=== PATIENT | female | born 1975 | race Hispanic/Latino ===

== ENCOUNTER 2021-01-11 15:07 | Outpatient (CLI) | payer OTHER, SELFPAY ==
--- NOTE | ~2021-01-11 | XR_ITS ---
EXAMINATION: XR chest 2V 01/11/2021 15:34 INDICATION: Shortness of breath and cough PROCEDURE: PA and lateral views of the chest COMPARISON: No prior studies for comparison. FINDINGS: The lungs are clear. The cardiomediastinal silhouette is within normal limits. There are no pleural effusions. There is no pneumothorax suspected. IMPRESSION: 1: NO ACUTE CARDIOPULMONARY DISEASE. Reviewed, dictated and finalized at location A. SLATER
== END 2021-01-11 15:08 | disposition home or self-care (01) ==
PROVIDERS: PCP Physician Assistant; Visit Provider Physician Assistant
DX: U07.1 COVID-19 (principal)
CPT/HCPCS: 71046

== ENCOUNTER 2021-01-24 13:03 | Outpatient (CLI) | payer OTHER, SELFPAY ==
--- NOTE | ~2021-01-24 | MM_ITS ---
EXAMINATION: MM screening deshawn BI w kathi HISTORY: Screening mammogram TECHNIQUE: Craniocaudal and mediolateral oblique 3-D tomosynthesis images were obtained and synthetic 2-D images were generated. CAD analysis was submitted and interpreted. COMPARISON: None, baseline BREAST PARENCHYMAL COMPOSITION: The breasts are extremely dense, which lowers the sensitivity of mamm ography. FINDINGS: There is no evidence of suspicious mass, calcification, or architectural distortion to sugg est malignancy in either breast. IMPRESSION: 1. No mammographic evidence of malignancy. 2. Recommend routine screening mammography in one year. BI-RADS Category 1: Negative Reviewed, dictated and finalized at location A.
== END 2021-01-24 13:04 | disposition home or self-care (01) ==
LOC: ANHIMG 13:08
PROVIDERS: PCP Physician Assistant; Visit Provider Physician Assistant
DX: Z12.31 Encounter for screening mammogram for malignant neoplasm of breast (principal)
CPT/HCPCS: 77063; 77067

== ENCOUNTER 2021-05-05 23:19 | Emergency (ER) | payer OTHER, SELFPAY ==
[2021-05-05 23:23] VITALS: BP 153/86; PULSE 103; RESP 20; TEMP 37.1; O2SAT 99
--- NOTE | 2021-05-06 00:14 | PC.NURSE ---
pt reports unable to sleep x 36 hours. also reports recent surgery and ran out of norco 3 days ago. appears a/o x 4, no s/s of distress. with son at bedside.
[2021-05-06] MEDS: LORazepam (*CRX) 1 MG TABLET PO (00:19)
[2021-05-06 00:25] VITALS: BP 145/75; PULSE 75; RESP 18; O2SAT 98
[2021-05-06 00:26] VITALS: PULSE 95
--- NOTE | 2021-05-06 01:07 | PC.NURSE ---
pt resting on stretcher c regular, even, nonlabored resps. no s/s of distress. family member at bedside.
--- NOTE | 2021-05-06 01:18 | PC.NURSE ---
resting on stretcher c eyes closed. no s/s of distress.
--- NOTE | 2021-05-06 01:29 | ED.GENADULT ---
HPI - General Adult General Chief complaint: Unspecified Stated complaint: insomnia Time Seen by Provider: 05/05/21 23:36 History of Present Illness HPI narrative: Patient is a 46-year-old female who presents to the ER for insomnia. Patient reports that over the last day and a half she has not been able to sleep due to just feeling anxious. No sign anything in particular that she is anxious about. She did have a surgery 1 week ago to remove fluid from her brain she is unsure what her diagnosis was or what the actual procedure was that was performed. She does know that she did not have a shunt placed. She has no new numbness or tingling or focal neurologic deficit since his surgery. She reports that she has been sleeping well since the surgery with the exception last 36 hours. No trauma to the head. She has tried no medications outside of melatonin to help her sleep. Patient reports her surgery was for fluid on the brain. It was not related to bleeding. Denies history of pseudotumor cerebri. Related Data Allergies Allergy/AdvReac Type Severity Reaction Status Date / Time No Known Allergies Allergy Verified 05/06/21 00:15 Review of Systems Review of Systems: All systems reviewed & are unremarkable except as noted in HPI and below Constitutional: Constitutional: Denies chills and Denies fever(s) Comments: Insomnia Eyes: Eyes: Denies loss of vision and Denies other visual disturbances Gastrointestinal: Gastrointestinal: Denies abdominal pain, Denies nausea and Denies vomiting Neurologic: Denies headache(s), Denies focal weakness and Denies numbness Psychiatric: Psychiatric: Reports anxiety PMFSH Past Medical History Medical History (Updated 05/06/21 @ 01:38 by Kasi Alcala MD) Healthy female adult Surgical History Surgical History (Updated 05/06/21 @ 01:35 by Kasi Alcala MD) H/O brain surgery Course Course Emergency Course: Unremarkable exam. Patient resting comfortably and laying in bed with her eyes closed in no distress. She had received Ativan for anxiety. States she is still unsure if she is going be able to sleep. Discussed that insomnia is not a medical emergency she can try additional sleep aids such as Benadryl. Is recommended she follow-up with her primary care doctor. If she were to develop any headache or neurologic issues she should immediately return and see her surgeons. Vital Signs Vital signs: Vital Signs Temperature 98.8 F 05/05/21 23:23 Pulse Rate 103 H 05/05/21 23:23 Respiratory Rate 20 05/05/21 23:23 Blood Pressure 153/86 H 05/05/21 23:23 Pulse Oximetry 99 05/05/21 23:23 Temperature 98.8 F 05/05/21 23:23 Pulse Rate 95 05/06/21 00:26 Respiratory Rate 18 05/06/21 00:25 Blood Pressure 145/75 H 05/06/21 00:25 Pulse Oximetry 98 05/06/21 00:25 Medical Decision Making Vital Signs Vital Signs: Vital Signs Temperature 98.8 F 05/05/21 23:23 Pulse Rate 103 H 05/05/21 23:23 Respiratory Rate 20 05/05/21 23:23 Blood Pressure 153/86 H 05/05/21 23:23 Pulse Oximetry 99 05/05/21 23:23 Temperature 98.8 F 05/05/21 23:23 Pulse Rate 95 05/06/21 00:26 Respiratory Rate 18 05/06/21 00:25 Blood Pressure 145/75 H 05/06/21 00:25 Pulse Oximetry 98 05/06/21 00:25 Discharge Plan Discharge Clinical Impression: Insomnia Patient Disposition: Home, Self-Care Condition: Stable Instructions: Insomnia (ED) Additional Instructions: You may continue taking melatonin at home. You may also take Benadryl to help you sleep. Follow-up with your primary care doctor for further treatment evaluation. Should you develop any headache, nausea, vomiting, numbness or tingling, or any change in vision you should immediately return to the hospital where you had your brain surgery performed. Prescriptions: New diphenhydramine HCl [Benadryl] 25 mg capsule 25 mg PO HS Qty: 10 RF: 0 Follow-up/Referrals: Pravin,Ramírez
--- NOTE | 2021-05-06 01:51 | PC.NURSE ---
d/c prior to benadryl given.
== END 2021-05-06 01:53 | disposition home or self-care (01) ==
PROVIDERS: Emergency Provider Emergency Medicine; PCP Internal Medicine Infectious Disease
DX: G47.00 Insomnia, unspecified (principal)
CPT/HCPCS: 99283; A9270

== ENCOUNTER 2022-05-07 11:07 | Emergency (ER) | payer OTHER, MEDICAID, SELFPAY ==
--- NOTE | ~2022-05-07 | XR_ITS ---
EXAMINATION: XR chest 2V DATE: 05/07/2022 12:35 INDICATION: Syncope TECHNIQUE: PA and lateral views of the chest were obtained. COMPARISON: Chest radiograph dated 01/11/2021 FINDINGS: The lungs remain clear with no focal airspace opacities, pulmonary edema, pleural effusion or pneumot horax. The cardiomediastinal silhouette is normal. Moderate bilateral acromioclavicular osteoarthriti s. Mild thoracic spondylosis. IMPRESSION: 1. No acute cardiopulmonary disease. Reviewed, dictated and finalized at location A.
[2022-05-07 11:21] VITALS: BP 153/96; PULSE 74; RESP 18; TEMP 36.2; O2SAT 100
--- NOTE | 2022-05-07 11:24 | ECG_ITS ---
Measurements Intervals [place] Rate: 72 P: 67 FL: 143 QRS: -25 QRSD: 106 T: 54 QT: 381 QTc: 420 Interpretive Statements SINUS RHYTHM INCOMPLETE RIGHT BUNDLE BRANCH BLOCK DELAYED PRECORDIAL R/S TRANSITION BASELINE ARTIFACT- I, III, AVR, AVL BORDERLINE ECG Electronically Signed On 05-07-2022 11:43:17 CDT by Julian Curiel D.O.
[2022-05-07 11:55] LABS: Basophils Absolute Auto 0.1 K/mm3 (0.0-0.1); Basophils Percent Auto 1.1 % (0.2-1.2); Eosinophils Absolute Auto 0.3 K/mm3 (0-0.3); Eosinophils Percent Auto 4.9 % (0-4.4); Hematocrit 39.1 % (37.0-47.0); Hemoglobin 13.3 g/dL (12.0-15.0); Immature Granulocyte Absolute 0.02 K/mm3 (0.00-0.031); Immature Granulocyte Percent A 0.3 % (0-0.5); Lymphocytes Absolute Auto 1.18 K/mm3 (0.9-3.2); Lymphocytes Percent Auto 19.4 % (18.3-44.2); Mean Corpuscular Hemoglobin 30.1 pg (26-34); Mean Corpuscular Volume 88.5 fl (80-100); Mean Platelet Volume 10.7 fl (7.4-10.4); Monocytes Absolute Auto 0.4 K/mm3 (0.1-0.6); Monocytes Percent Auto 6.9 % (2.6-8.5); Neutrophils Absolute Auto 4.1 K/mm3 (1.3-6.7); Neutrophils Percent Auto 67.4 % (45.5-73.1); Platelet Count Result 202 k/mm3 (150-375); Red Blood Count 4.42 M/mm3 (4.2-5.4); Red Cell Distribution Width 13.1 % (11.5-14.5); White Blood Count 6.1 K/mm3 (4.5-10.0)
[2022-05-07 12:05] LABS: Alanine Aminotransferase 25 U/L (6-35); Albumin Level 4.5 g/dL (3.5-5.1); Alkaline Phosphatase 77 U/L (38-126); Anion Gap 6 mmol/L (8-16); Aspartate Amino Transferase 30 U/L (14-36); Bilirubin,Total 0.2 mg/dL (0.2-1.3); Blood Urea Nitrogen 13 mg/dL (7-17); Calcium 8.3 mg/dL (8.4-10.2); Carbon Dioxide 22 mmol/L (22-30); Chloride 109 mmol/L (98-107); Estimated CRCL calculation 69 ml/min; Estimated Glomerular Filt Rate > 60; Glucose 104 mg/dL (65-110); Potassium 3.6 mmol/L (3.4-5.0); Sodium 137 mmol/L (137-145)
[2022-05-07 12:18] VITALS: BP 129/97; PULSE 71; PULSE 81; RESP 21; O2SAT 100
[2022-05-07 12:22] VITALS: BP 149/83; PULSE 72
[2022-05-07 12:23] VITALS: BP 145/87; BP 159/74; PULSE 74; PULSE 87
--- NOTE | 2022-05-07 12:36 | ED.SYNCOPE ---
HPI - Syncope General Chief Complaint: Syncope Stated Complaint: dizzy at work Time Seen by Provider: 05/07/22 12:16 History of Present Illness HPI narrative: 47-year-old female presented the emergency room for evaluation of a syncopal event. 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 Patient states that she developed dizziness, she was in a pass out. Patient recalls having with a felt like a fast heart rate and then began to breathe really quickly. She states following this her hands and feet became numb and that is when she passed out. Presently in the ER, patient is alert and oriented x3 and states she is back to baseline. Related Data Allergies Allergy/AdvReac Type Severity Reaction Status Date / Time No Known Allergies Allergy Verified 05/06/21 00:15 Review of Systems Review of Systems: CONSTITUTIONAL: Denies fever, chills, or sweats. EYES: Denies visual changes, redness, or discharge. ENT: Denies rhinorrhea, congestion, sore throat, or otalgia. CARDIOVASCULAR: Denies chest pain, palpitations, or edema. RESPIRATORY: Denies cough or dyspnea. GASTROINTESTINAL: Denies abdominal pain, nausea, vomiting, or diarrhea. GENITOURINARY: Denies dysuria or hematuria. SKIN: Denies rash or itching. MUSCULOSKELETAL: Denies back pain, joint pain, or myalgia. NEUROLOGIC: Denies headache, numbness, dizziness, or weakness. PSYCHIATRIC: Denies anxiety or depression. PMFSH Past Medical History Medical History Healthy female adult Surgical History Surgical History H/O brain surgery Exam Narrative: GENERAL: Well-appearing, well-nourished, no physical limitations, and in no acute distress. HEAD: Normocephalic, atraumatic. EYES: Conjunctivae normal, PERRLA and EOMI. CHEST: Clear to auscultation. No respiratory distress. No wheezes rales or rhonchi. No tenderness. HEART: Regular rate and rhythm. No murmur heard. Normal peripheral pulses. BACK: No CVA tenderness; No cervical/thoracic/lumbar tenderness, step-offs, bony abnormality; FROM EXTREMITIES: Normal range of motion. No edema. No clubbing or cyanosis SKIN: Warm, dry, no rash. No noted wounds NEURO: No focal deficits. Alert and oriented x3. MAEW. CN's II-XI intact bilaterally, normal gait PSYCH: Cooperative. Normal mood and affect. Course Vital Signs Vital signs: Vital Signs Temperature 36.2 C L 05/07/22 11:21 Pulse Rate 74 05/07/22 11:21 Respiratory Rate 18 05/07/22 11:21 Blood Pressure 153/96 H 05/07/22 11:21 Pulse Oximetry 100 05/07/22 11:21 Oxygen Delivery Room Air 05/07/22 11:21 Temperature 36.2 C L 05/07/22 11:21 Pulse Rate 87 05/07/22 12:23 Respiratory Rate 21 H 05/07/22 12:18 Blood Pressure 159/74 H 05/07/22 12:23 Pulse Oximetry 100 05/07/22 12:18 Oxygen Delivery Room Air 05/07/22 11:21 MDM - Syncope MDM Narrative Medical decision making narrative: 47-year-old female presented to the emergency room for evaluation of syncopal episode. Given history, exam and work-up comes low suspicion for heart failure, intracranial hemorrhage, seizure, or acute coronary syndrome. Based on the Sharkey syncopal rule, patient is low risk and well-appearing here, plan to discharge patient home with follow-up with primary care physician. Lab Data Result diagrams: 05/07/22 11:44 05/07/22 11:44 Labs: Lab Results 05/07/22 05/07/22 05/07/22 Range/Units 11:44 11:44 12:41 WBC 6.1 (4.5-10.0) K/mm3 RBC 4.42 (4.2-5.4) M/mm3 Hgb 13.3 (12.0-15.0) g/dL Hct 39.1 (37.0-47.0) % MCV 88.5 (80-100) fl MCH 30.1 (26-34) pg MCHC 34.0 (32-36) g/dl RDW 13.1 (11.5-14.5) % Plt Count 202 (150-375) k/mm3 MPV 10.7 H (7.4-10.4) fl Immature Gran % (Auto) 0.3 (0-0.5) % Neut % (Auto) 67.4 (45.5-73.1) % Lymph % (Auto)
[2022-05-07] MEDS: SODIUM CHLORIDE 0.9% IV 1,000 ML 999 ML IV CONT (12:49)
[2022-05-07 12:54] LABS: Creatine Kinase 127 U/L (30-135)
[2022-05-07 13:07] LABS: Troponin I < 0.012 ng/mL (0.000-0.034)
[2022-05-07 13:52] VITALS: BP 117/93; PULSE 69; RESP 14; O2SAT 97
[2022-05-07 14:15] VITALS: BP 123/77; PULSE 82; RESP 19; O2SAT 97
== END 2022-05-07 14:15 | disposition home or self-care (01) ==
PROVIDERS: Emergency Medicine; Emergency Provider Nurse Practitioner Family; PCP Internal Medicine Infectious Disease
DX: R55 Syncope and collapse (principal)
CPT/HCPCS: 36415; 71046; 80053; 82550; 84484; 85025; 93005; 96360; 99284; J7030

== ENCOUNTER 2025-01-26 13:56 | Emergency (ER) | payer OTHER, SELFPAY ==
--- NOTE | ~2025-01-26 | XR_ITS ---
XR chest 1V portable Ordering provider: Pat Hahn PA-C History: 49 years Female with . chest pain WITH ANXIETY . Comparison: May 07, 2022 FINDINGS: MEDIASTINUM: The cardiac silhouette is not enlarged. LUNGS: No infiltrates, effusions or pneumothorax. OTHER: No free air under the diaphragm. IMPRESSION: No acute cardiopulmonary pathology. Reviewed, dictated and finalized at location A.
--- NOTE | ~2025-01-26 | CT_ITS ---
CTA chest PE protocol Ordering provider: Pat Hahn PA-C History: 49 years Female with . palpitations, dyspnea, elevated d dimer . Comparison: December 30, 2020 Technique: CT angiogram chest was performed following timed intravenous injection of contrast. Thin s lice axial images and reformatted coronal images were obtained. Three dimensional reformatted images of the chest were also obtained using a [employer] workstation. . Automated exposure control and iterati ve reconstruction technique were employed. The dose-length product was 157.91 mGy-cm. 100 mL Omnipaqu e 350 was given IV. Findings: PULMONARY ARTERIES: No pulmonary embolus. VISUALIZED THORACIC INLET: Normal. MEDIASTINUM: Aorta/coronary arteries: Mild atheromatous disease. Heart/other: The heart is not enlarged. Lymph nodes: No mediastinal or hilar adenopathy. LUNGS: No pulmonary nodules or masses. No infiltrates or effusions. No pneumothorax. Dependent atelectatic c hanges. VISUALIZED UPPER ABDOMEN: Otherwise, the visualized upper abdomen is normal. MUSCULOSKELETAL: Soft tissues: The superficial soft tissues are normal. Bones: Age appropriate degenerative changes of the spine. IMPRESSION: 1. No pulmonary embolism. 2. No acute cardiopulmonary pathology. Reviewed, dictated and finalized at location A.
[2025-01-26 14:10] VITALS: BP 110/70; PULSE 78; RESP 16; TEMP 36.6; O2SAT 99
--- NOTE | 2025-01-26 14:16 | ECG_ITS ---
Test Date: 2025-01-26 14:18:43 Measurements Intervals [place] Rate: 74 P: 71 MO: 152 QRS: -50 QRSD: 96 T: 65 QT: 369 QTc: 411 Interpretive Statements SINUS RHYTHM LEFT ANTERIOR FASCICULAR BLOCK [QRS AXIS <= -45, QR IN I, RS IN II] No previous ECG available for comparison Electronically Signed On 01-27-2025 10:43:36 CDT by Abelardo Haley M.D.
--- OUTSIDE RECORDS SUMMARY | 2025-01-26 15:07 | XMS_ITS | Clinical Summary ---
Author Organization [facility] Address [address] [place] [address] Care Team Providers Care Dean Name Role Phone Elvin Costello MD Primary Care Provider Source Comments [facility],non-owned Affiliates and Associated Physician Practices is amultiple site organization consisting of ambulatory clinics and hospital sitesin [place], [place], [place] and [place]. This disclosure is being madepursuant to the Care Everywhere program and may not contain all information available regarding this patient. Last updated 18.[facility] [employer] Allergies No known active allergies Medications * Be aware that medications may not be up to date on this document. Alwaysverify current medications with the patient. Medication Sig Dispensed Refills Start Date End Date Status Vitamin D3 (CHOLECALCIFEROL) 50 MCG (1999) capsule Take 2,000 Units by mouth once daily Active Acetaminophen (TYLENOL) 325 MG CAPS Active DULoxetine (CYMBALTA) 60 MG capsule Take 1 capsule by mouth once daily 90 capsule 1 11/15/2019 Active meloxicam (MOBIC) 15 MG tablet Take 1 tablet by mouth once daily 30 tablet 4 11/15/2019 Active Immunizations Name Administration Dates Next Due iNFLUENZA VACCINE, RECOM-MONTES, QUADR. (FLUBLOCK QUADRIVALENT; 18Y+) (RIV4) 09/27/2019 Family History Medical History Relation Name Comments Hypertension Mother Relation Name Status Comments Mother Social History Tobacco Use Types Packs/Day Years Used Date Smoking Tobacco: Never Smokeless Tobacco: Never Alcohol Use Standard Drinks/Week Comments Never 0 (1 standard drink = 0.6 oz pur e alcohol) AUDIT-C Answer Date Recorded Frequency of Alcohol Consumption Never 09/27/2019 Average Number of Drinks Not on file 019 Frequency of Binge Drinking Not on file 09/04 Sex and Gender Information Value Date Recorded Sex Assigned at Not on file Gender Identity Not on file Sexual Orientation Not on file Last Filed Vital Signs Vital Sign Reading Time Taken Comments Blood Pressure 110/72 11/15/2019 10:24 AM CEMENT BLOCK MAKER Pulse 76 11/15/2019 10:24 AM CEMENT BLOCK MAKER Temperature 37 C (98.6 F) 11/15/2019 10:24 AM CEMENT BLOCK MAKER Respiratory Rate 16 11/15/2019 10:24 AM CEMENT BLOCK MAKER Oxygen Saturation 99% 11/15/2019 10:24 AM CEMENT BLOCK MAKER Inhaled Oxygen Concentration - - Weight 51.3 kg (113 lb) 11/15/2019 10:24 AM CEMENT BLOCK MAKER Height - - Body Mass Index - - Plan of Treatment Health Maintenance Due Date Last Done Comments COLOGUARD (AGES 45-75) - COL ON CA SCREENING 1973 COLON MONITORING 1973 COLONOSCOPY - COLON CA SCREENING 1973 CT COLONOGRAPHY - COLON CA SCREENING 1973 Colorectal Cancer Screening 1973 FIT - COLON CA SCREENING 1973 FLEX SIG - COLON CA SCREENING 1973 LIPID TESTING 1973 MAMMOGRAM 1973 PAP SMEAR 1973 HIV SCREENING 1988 HEPATITIS C SCREENING 03/31/1991 DTAP/TDAP/TD VACCINES (1 - Tdap) 1992 HEPATITIS B VACCINE (1 of 3 - 19+ 3-dose series) 1992 PNEUMOCOCCAL VACCINE 50+ (1 of 1 - PCV) 2023 ZOSTER VACCINE (1 of 2) 2023 COVID-19 VACCINE (1 - 2023-2 5 season) 2024 INFLUENZA VACCINE (#1) 2024 09/27/2019 DEPRESSION SCREENING 11/03/2024 HIB VACCINE Aged Out No longer eligi ble based on patient's age to complete this topic HPV VACCINE Aged Out No longer eligi ble based on patient's age to complete this topic MENINGOCOCCAL (Group B) VACC INE SHARED DECISION-MAKING Aged Out No longer eligibl e based on patient's age to complete this topic MENINGOCOCCAL GROUPS A/C/Y/W VACCINE Aged Out No longer eligible b ased on patient's age to complete this topic PNEUMOCOCCAL VACCINE Aged Out No long er eligible based on patient's age to complete this topic Care Teams Dean Relationship Specialty [place] [address] [place] [address] [phone] PCP - General 09/27/19
--- NOTE | 2025-01-26 18:11 | ED.ANXIETY ---
HPI - Anxiety General Chief Complaint: Anxiety Stated Complaint: Short of breath, prob Anxiety attack Time Seen by Provider: 01/26/25 17:25 History of Present Illness HPI narrative: 49-year-old Salvadorean speaking female with a history of anxiety presents to the emergency department for shortness of breath and palpitations started around 11:00 a.m.. Patient states she was at work, just finished eating her lunch, was walking with a co-worker in talking to them when she began to feel acute onset shortness of breath and palpitations. She went to the disaster recovery manager's office and EMS was contacted. She states she took her prescribed clonazepam and metoprolol around 11:10 a.m. and then came to the emergency department. She states symptoms lasted until 1:30 p.m. and then resolved. She states she did feel better after taking the clonazepam and metoprolol. She states she had palpitations, chest pain and shortness of breath. When asked to describe chest pain she states it felt that her heart was beating quickly. She denies radiating symptoms or exertional symptoms. She denies lower extremity edema, history of VTE, fever. She is endorsing a slight nonproductive cough but no hemoptysis. No recent surgeries or hospitalizations. She does note that she recently had an outpatient ?pacemaker?, however upon questioning this sounds like a Holter monitor she had performed 1 year ago. She then followed up with a real estate developer at [facility] last week and was prescribed clonazepam and metoprolol. She is uncertain why she is taking the metoprolol. As far she knows she has no cardiac history, no history of she CVA. When I asked her why she saw a real estate developer, she states because she was having shortness of breath at night when she would lay down and palpitations. She also states 1 year ago she had what sounds like a pulmonary function test which was also reportedly unremarkable. She does not smoke. Denies family history of heart disease or CVA, denies family history of sudden cardiac . At the time of my evaluation the patient states she has no symptoms. She states her symptoms felt like anxiety. She denies family history of sudden cardiac . She does note that her son had a ?rapid heart rate? when he was 16 years old and had undergo an outpatient procedure. Patient believes the condition was SVT. Otherwise no family history of heart disease. Related Data Allergies Allergy/AdvReac Type Severity Reaction Status Date / Time No Known Allergies Allergy Verified 01/26/25 15:44 Review of Systems Review of Systems: All systems reviewed & are unremarkable except as noted in HPI and below PMFSH Past Medical History Medical History Healthy female adult Healthy female adult Surgical History Surgical History H/O brain surgery History of section Social History Social History Smoking status: Never smoker Second hand tobacco smoke exposure: No Alcohol intake: never Exam Narrative: GENERAL: Well-appearing, well-nourished, and in no acute distress. HEAD: Normocephalic, atraumatic. EYES: EOMI. ENT: Nares clear, no rhinorrhea or epistaxis. Mucous membranes moist. NECK: Supple. CHEST: Clear to auscultation. No respiratory distress. HEART: Regular rate and rhythm. No murmur heard. Normal peripheral pulses. ABDOMEN: Soft, nontender, nondistended, normal active bowel sounds. EXTREMITIES: Normal range of motion. No edema. Negative Homans bilaterally SKIN: Warm, dry, no rash. NEURO: No focal deficits. Alert and oriented x3 Course Vital Signs Vital signs: Vital Signs Temperature 97.8 F 01/26/25 14:10 Pulse Rate 78 01/26/25 14:10 Respiratory Rate 16 01/26/25 14:10 Blood Pressure 110/70 01/26/25 14:10 Pulse Oximetry 99 01/26/25 14:10 Temperature 97.8 F 01/26/25 19:20 Pulse Rate 72 01/26/25 19:20 Respiratory Rate 16 01/26/25 19:20 Blood Pressure 138/82 01/26/25 19:20 Pulse Oximetry 100 01/26/25 19:20 MDM - Anxiety MDM Narrative Medical decision making narrative: 49-year-old Salvadorean-speaking female with history of anxiety presents emergency department for sudden-onset shortness of breath and palpitations at 1100 while at work. States she took her prescribed clonazepam and metoprolol 1110 and symptoms improved. She has been asymptomatic since 1330 today. Triage vitals are stable. Patient is afebrile nontoxic appearing and resting comfortably in exam bed. EKG shows sinus rhythm, normal CA interval, normal QRS duration, normal QTC, no ischemic changes. Troponin is undetectable. CBC without leukocytosis or anemia. Chemistries are unremarkable, no significant electrolyte derangements. Mag within normal limits. TSH is within normal limits. Viral swabs are negative. Chest x-ray shows no acute cardiopulmonary findings. D-dimer is elevated 1.82, therefore CTA chest PE obtained which shows no PE, no acute cardiopulmonary pathology. Patient was updated on results. On re-evaluation she remains comfortably in exam bed. No other arrhythmias noted on rn concurrent review. Suspect anxiety, however still advised to follow-up closely with her PCP and real estate developer as she may need outpatient Holter monitor repeated. Advised her to continue her clonazepam and metoprolol as prescribed. Discussed ED return precautions. She is agreeable to plan verbalized understanding. Discharged in stable condition. Lab Data 01/26/25 19:07 01/26/25 19:07 Labs: Lab Results 01/26/25 01/26/25 Range/Units 19:07 21:06 WBC 6.9 (4.5-10.0) K/mm3 RBC 4.70 (4.2-5.4) M/mm3 Hgb 13.9 (12.0-15.0) g/dL Hct 42.0 (37.0-47.0) % MCV 89.4 (80-100) fl MCH 29.6 (26-34) pg MCHC 33.1 (32-36) g/dl RDW 14.2 (11.5-14.5) % Plt Count 230 (150-375) k/mm3 MPV 10.6 H (7.4-10.4) fl Immature Gran % (Auto) 0.6 H (0-0.5) % Neut % (Auto) 62.7 (45.5-73.1) % Lymph % (Auto) 21.5 (18.3-44.2) % [place] % (Auto) 8.4 (2.6-8.5) % Eos % (Auto) 6.1 H (0-4.4) % Baso % (Auto) 0.7 (0.2-1.2) % Lymph # (Auto) 1.49 (0.9-3.2) K/mm3 [place] # (Auto) 0.6 (0.1-0.6) K/mm3 Eos # (Auto) 0.4 H (0-0.3) K/mm3 Baso # (Auto) 0.1 (0.0-0.1) K/mm3 Abs Immat Gran (auto) 0.04 H (0.00-0.031) K/mm3 Absolute Neuts (auto) 4.4 (1.3-6.7) K/mm3 Absolute Nucleated RBC 0.000 (0.0-0.012) K/mm3 Nucleated RBC % 0.0 (0.0-0.2) % PT 12.7 (11.1-14.7) Seconds INR 0.9 APTT 31.7 (22.3-36.8) Seconds D-Dimer 1.82 H (<0.48) ug/mL Sodium 138 (137-145) mmol/L Potassium 3.9 (3.4-5.0) mmol/L Chloride 104 (98-107) mmol/L Carbon Dioxide 23 (22-30) mmol/L Anion Gap 11 (4-12) mmol/L BUN 13 (7-17) mg/dL Creatinine 0.53 L (0.7-1.0) mg/dL Estim Creat Clear Calc 91 ml/min Estimated GFR > 60 (59 - ) Glucose 100 (65-110) mg/dL Calcium 9.3 (8.4-10.2) mg/dL Magnesium 1.9 (1.6-2.3) mg/dL Total Bilirubin 0.5 (0.2-1.3) mg/dL AST 33 (14-36) U/L ALT 42 H (6-35) U/L Alkaline Phosphatase 83 (38-126) U/L Troponin I < 0.012 Pending (0.000-0.034) ng/mL NT-Pro-B Natriuret Pep 77 (19.9-100) pg/mL Total Protein 8.0 (6.3-8.2) g/dL Albumin 4.5 (3.5-5.1) g/dL Lipase 97 (23-300) U/L TSH (Reflex) 1.370 (0.465-4.68) uIU/mL Influenza A (RT-PCR) Negative (Negative) Influenza B (RT-PCR) Negative (Negative) RSV (RT-PCR) Negative (Negative) SARS-CoV-2 RNA (RT-PCR) Negative (Negative) Discharge Plan Discharge Clinical Impression: Heart palpitations, Anxiety Patient Disposition: Home, Self-Care Condition: Stable Instructions: Antibiotic Form, Heart Palpitations (DC), Anxiety (ED) Patient Language: Salvadorean Prescriptions: No Action albuterol sulfate 90 mcg/actuation HFA aerosol inhaler 2 puff INHALATION QID PRN (Reason: shortness of breath or wheezing) Qty: 8 0RF diphenhydramine HCl [Benadryl] 25 mg capsule 25 mg PO HS Qty: 10 0RF Follow-up/Referrals: Pravin,Melvi Oconnor [Non-Staff] - Álvaro,ENZO Ba [Non-Staff] - Velasquez Finley MD [Physician] -
--- OUTSIDE RECORDS SUMMARY | 2025-01-26 18:15 | XMS_ITS | Clinical Summary ---
Author Organization [facility] Address [address] [place] [address] Care Team Providers Care Seamless Hosiery Knitter Name Role Phone Elvin Costello MD Primary Care Provider Source Comments [facility],non-owned Affiliates and Associated Physician Practices is amultiple site organization consisting of ambulatory clinics and hospital sitesin [place], [place], [place] and [place]. This disclosure is being madepursuant to the Care Everywhere program and may not contain all information available regarding this patient. Last updated 18.[facility] [place] Allergies No known active allergies Medications * [...] Comments Blood Pressure 110/72 11/15/2019 10:24 AM REBAR BENDER Pulse 76 11/15/2019 10:24 AM REBAR BENDER Temperature 37 C (98.6 F) 11/15/2019 10:24 AM REBAR BENDER Respiratory Rate 16 11/15/2019 10:24 AM REBAR BENDER Oxygen Saturation 99% 11/15/2019 10:24 AM REBAR BENDER Inhaled Oxygen Concentration - - Weight 51.3 kg (113 lb) 11/15/2019 10:24 AM REBAR BENDER Height - - Body Mass Index - [...] age to complete this topic Care Teams Seamless Hosiery Knitter Relationship Specialty [place] [address] [place] [address] [phone] PCP - General 09/27/19
--- NOTE | 2025-01-26 18:35 | PC.NURSE ---
unsuccessful in attempts to obtain blood from patient. GRISELDA rose.
[2025-01-26 19:18] LABS: Basophils Absolute Auto 0.1 K/mm3 (0.0-0.1); Basophils Percent Auto 0.7 % (0.2-1.2); Eosinophils Absolute Auto 0.4 K/mm3 (0-0.3); Eosinophils Percent Auto 6.1 % (0-4.4); Hemoglobin 13.9 g/dL (12.0-15.0); Immature Granulocyte Absolute 0.04 K/mm3 (0.00-0.031); Immature Granulocyte Percent A 0.6 % (0-0.5); Lymphocytes Absolute Auto 1.49 K/mm3 (0.9-3.2); Lymphocytes Percent Auto 21.5 % (18.3-44.2); Mean Corpuscular HGB Conc 33.1 g/dl (32-36); Mean Corpuscular Hemoglobin 29.6 pg (26-34); Mean Corpuscular Volume 89.4 fl (80-100); Mean Platelet Volume 10.6 fl (7.4-10.4); Monocytes Absolute Auto 0.6 K/mm3 (0.1-0.6); Monocytes Percent Auto 8.4 % (2.6-8.5); Neutrophils Absolute Auto 4.4 K/mm3 (1.3-6.7); Neutrophils Percent Auto 62.7 % (45.5-73.1); Platelet Count Result 230 k/mm3 (150-375); Red Cell Distribution Width 14.2 % (11.5-14.5); White Blood Count 6.9 K/mm3 (4.5-10.0)
[2025-01-26 19:20] VITALS: BP 138/82; PULSE 72; RESP 16; TEMP 36.6; O2SAT 100
[2025-01-26 19:30] LABS: Alanine Aminotransferase 42 U/L (6-35); Albumin Level 4.5 g/dL (3.5-5.1); Alkaline Phosphatase 83 U/L (38-126); Anion Gap 11 mmol/L (4-12); Aspartate Amino Transferase 33 U/L (14-36); Bilirubin,Total 0.5 mg/dL (0.2-1.3); Blood Urea Nitrogen 13 mg/dL (7-17); Calcium 9.3 mg/dL (8.4-10.2); Carbon Dioxide 23 mmol/L (22-30); Chloride 104 mmol/L (98-107); Estimated CRCL calculation 91 ml/min; Estimated Glomerular Filt Rate > 60; Glucose 100 mg/dL (65-110); Lipase 97 U/L (23-300); Magnesium 1.9 mg/dL (1.6-2.3); Potassium 3.9 mmol/L (3.4-5.0); Sodium 138 mmol/L (137-145)
[2025-01-26 19:41] LABS: INR 0.9; Prothrombin Time 12.7 Seconds (11.1-14.7)
[2025-01-26 19:42] LABS: NT Pro B Type Natriuretic Pept 77 pg/mL (19.9-100); Troponin I < 0.012 ng/mL (0.000-0.034)
[2025-01-26 19:43] LABS: Partial Thromboplastin Time 31.7 Seconds (22.3-36.8)
[2025-01-26 19:54] LABS: Influenza A QL RT-PCR Negative (Negative); Influenza B QL RT-PCR Negative (Negative); RSV RNA, RT-PCR Negative (Negative); SARS-CoV-2 RNA PCR Negative (Negative)
[2025-01-26 20:01] LABS: D Dimer 1.82 ug/mL (<0.48)
--- NOTE | 2025-01-26 20:37 | PC.NURSE ---
Received report from GRISELDA Kearney for cont. of care. Pt presents to ED for palpitations. Per pt she was at work and felt her heart racing and SOB. Pt AOX4, primarily scottish speaking. HX : anxiety
--- NOTE | 2025-01-26 20:53 | ECG_ITS ---
Test Date: 2025-01-26 21:17:21 Measurements Intervals [place] Rate: 73 P: 65 MI: 151 QRS: -56 QRSD: 105 T: 60 QT: 379 QTc: 420 Interpretive Statements SINUS RHYTHM LEFT ANTERIOR FASCICULAR BLOCK [QRS AXIS <= -45, QR IN I, RS IN II] Compared to ECG 01/26/2025 14:18:43 No significant changes Electronically Signed On 01-27-2025 10:52:12 CDT by Abelardo Haley M.D.
[2025-01-26 21:40] LABS: Troponin I < 0.012 ng/mL (0.000-0.034)
[2025-01-26 22:02] VITALS: BP 106/57; PULSE 85; RESP 15; O2SAT 100
== END 2025-01-26 22:11 | disposition home or self-care (01) ==
PROVIDERS: Emergency Provider Physician Assistant
DX: R00.2 Palpitations (principal); F41.9 Anxiety disorder, unspecified; Z20.822 Contact with and (suspected) exposure to COVID-19; I44.4 Left anterior fascicular block
CPT/HCPCS: 36415; 71045; 71275; 80053; 83690; 83735; 83880; 84443; 84484; 85025; 85380; 85610; 85730; 87637; 93005; 99284; Q9967